=== PATIENT | female | born 1965 | race African-American/Black ===

== ENCOUNTER 2021-05-02 14:32 | Emergency (ER) | payer BC ==
[~2021-05-02] VITALS: Ht 157.5 cm; Wt 100.0 kg
[2021-05-02 19:37] LABS: BILIRUBIN,URINE NEGATIVE (NEG); CLARITY,URINE CLEAR; COLOR,URINE YELLOW; NITRITE,URINE NEGATIVE (NEG); PROTEIN,URINE NEGATIVE (NEG-TRACE)
[2021-05-02 19:43] LABS: AMPHETAMINE/METHAMPHETAMINE NEG (NEG); BARBITURATES NEG (NEG); BENZODIAZEPINES NEG (NEG); CANNABINOIDS NEG (NEG); COCAINE NEG (NEG); METHADONE NEG (NEG); OPIATES NEG (NEG); PHENCYCLIDINE NEG (NEG)
[2021-05-02] MEDS ORDERED: LABETALOL 20 MG/4 ML DISP.SYRIN. IVP ONE (19:45)
[2021-05-02 19:48] LABS: BACTERIA,URINE 0 /HPF (0-FEW); RBC,URINE 0 /HPF (0-2); TRICHOMONAS,URINE PRESENT
--- NOTE | 2021-05-02 20:13 | RAD ---
CT abdomen and pelvis without contrast: Reason for examination: Flank pain Helical images were obtained through the abdomen and pelvis with no intravenous or oral contrast admi nistered. Reconstruction was performed in sagittal and coronal planes. Exposure: One or more of the following individualized dose reduction techniques were utilized for thi s examination: 1. Automated exposure control 2. Adjustment of the mA and/or kV according to patient size 3. Use of iterative reconstruction technique. There is some mild atelectasis at the lung bases. The heart size is normal with no pericardial effusi on. The liver is mildly enlarged at 19 cm and shows some fatty infiltration but no focal lesions. Spleen is normal in size and density. No abnormalities of seen at the adrenal glands, gallbladder or pancrea s. There is a small nodule near the splenic hilum measuring 1.3 cm in size consistent with a small sp lenule lung. The abdominal aorta and inferior vena cava show no acute abnormalities. Colon shows a fe w scattered diverticuli but no evidence of diverticulitis or colitis. No abnormality seen at the appe ndix. The small intestinal tract shows no abnormal dilatation, wall thickening or obstruction. No abn ormality seen at the stomach or duodenum. The kidneys show no renal masses, renal calculi, hydronephr osis or evidence of obstructive uropathy. The bladder is not distended. There does however appear to be a large lobulated mass in the midline o f the pelvis measuring 13.9 x 12.3 x 12.3 cm in craniocaudal, AP and transverse dimensions respective ly. This probably represents a large uterine fibroid. Further evaluation with ultrasound should be co nsidered. No free fluid is present. No free air seen in the abdomen. No acute bony abnormalities are seen. IMPRESSION: Linear atelectasis at the lung bases. Fatty liver with mild enlargement at 19 cm. Small 1.3 cm nodule consistent with a splenule lung near the splenic hilum. Large lobulated mass at the midline of the pelvis which appears to be arising from the uterus and con sistent with a probable fibroid measuring 13.9 x 12.3 x 12.3 cm in greatest dimension. Recommend furt her evaluation with ultrasound. Electronically signed by: Kathie Salazar MD (05/02/2021 8:11 PM) [facility]
[2021-05-02 20:57] LABS: BASO # 0.1 x10^3/uL (0.0-0.2); BASO % 1 % (0-3); EOS # 0.1 x10^3/uL (0.0-0.7); EOS % 2 % (0-3); HEMATOCRIT 41.4 % (36.0-47.0); HEMOGLOBIN 13.9 g/dL (12.0-15.5); LYMPH % 40 % (24-48); MEAN CORPUSCULAR HEMOGLOBIN 28 pg (25-35); MEAN CORPUSCULAR HGB CONC 34 g/dL (31-37); MEAN CORPUSCULAR VOLUME 84 fL (79-100); MONO # 0.4 x10^3/uL (0.0-1.1); MONO % 9 % (0-9); NEUT # 2.4 x10^3/uL (1.8-7.7); NEUT % 48 % (31-73); PLATELET COUNT 268 x10^3/uL (140-400); RED BLOOD COUNT 4.91 x10^6/uL (3.50-5.40); RED CELL DISTRIBUTION WIDTH 14.3 % (11.5-14.5)
[2021-05-02 21:11] LABS: CALCIUM 10.1 mg/dL (8.5-10.1); CREATININE 0.7 mg/dL (0.6-1.0); GFR 105.5; POTASSIUM 4.2 mmol/L (3.5-5.1)
[2021-05-02 21:14] LABS: ALBUMIN 3.5 g/dL (3.4-5.0); ALBUMIN/GLOBULIN RATIO 0.8 (1.0-1.7); TOTAL BILIRUBIN 0.3 mg/dL (0.2-1.0); TOTAL PROTEIN 7.8 g/dL (6.4-8.2)
[2021-05-02] MEDS ORDERED: cefTRIAXone IV Push 1 GM VIAL. IVP ONE (21:30)
[2021-05-02] MEDS ORDERED: metroNIDAZOLE 500 MG TABLET PO ONE (21:30)
[2021-05-02] MEDS ORDERED: DOXYCYCLINE HYCLATE 100 MG TABLET PO ONE (21:30)
--- NOTE | 2021-05-02 21:30 | RAD ---
EXAM: ULTRASOUND PELVIS INDICATION: Reason: pelvic mass? / Spl. Instructions: / History: . COMPARISON: CT dated 05/02/2021 TECHNIQUE: Transabdominal sonography was performed. FINDINGS: Uterus measures 15.4 x 12.4 x 10.1 cm. Use gradually lesions throughout the myometrium, largest of wh ich measures about 6.9 cm. The endometrium is not clearly identified due to multiple masses. Neither ovary is clearly identified. No adnexal mass or free fluid. IMPRESSION: 1. Fibroid uterus. 2. Endometrium is not clearly visualized and likely obscured by uterine fibroids. 3. Neither ovary is clearly identified. No apparent adnexal mass or free fluid. Electronically signed by: Abel So MD (05/02/2021 9:27 PM) [facility]
--- NOTE | 2021-05-02 22:11 | PHYS DOC ---
Past Medical History Past Surgical History: Other Additional Past Surgical Histo: ablation uterus General Adult EDM: Chief Complaint: FLANK PAIN HPI: HPI: Patient is a 56 year old female with no significant medical history presented today complaining of 8 out of 10 bilateral flank pain described as sharp and intermittent, symptoms for the last 2 weeks. Patient states "I believe it is my kidneys". Denies any urgency, frequency or dysuria. Denies any nausea vomiting. Denies any hematuria. Denies any fever. Denies anything specifically exacerbating or relieving the pain Review of Systems: Review of Systems: Constitutional: Denies fever or chills. [] Eyes: Denies change in visual acuity. [] HENT: Denies nasal congestion or sore throat. [] Respiratory: Denies cough or shortness of breath. [] Cardiovascular: Denies chest pain or edema. [] GI: Denies abdominal pain, nausea, vomiting, bloody stools or diarrhea. [] : Reports bilateral flank pain. Denies dysuria. [] Musculoskeletal: Denies back pain or joint pain. [] Integument: Denies rash. [] Neurologic: Denies headache, focal weakness or sensory changes. [] Psychiatric: Denies depression or anxiety. [] Heart Score: C/O Chest Pain: N/A Risk Factors: Risk Factors: DM, Current or recent (<one month) smoker, HTN, HLP, family history of CAD, obesity. Risk Scores: Score 0 - 3: 2.5% MACE over next 6 weeks - Discharge Home Score 4 - 6: 20.3% MACE over next 6 weeks - Admit for Clinical Observation Score 7 - 10: 72.7% MACE over next 6 weeks - Early Invasive Strategies Current Medications: Current Medications Medications (Trade) Dose Ordered Sig/Jsoe Start Time Stop Time Status Last Admin Dose Admin Ceftriaxone Sodium (Rocephin) 1 gm 1X ONCE 05/02/21 21:30 05/02/21 21:31 DC 05/02/21 21:50 1 GM Doxycycline Hyclate (Vibra-Tab) 100 mg 1X ONCE 05/02/21 21:30 05/02/21 21:31 DC 05/02/21 21:49 100 MG Labetalol HCl (Normodyne Iv Push) 10 mg 1X ONCE 05/02/21 19:45 05/02/21 19:46 DC 05/02/21 20:35 10 MG Metronidazole (Flagyl) 2,000 mg 1X ONCE 05/02/21 21:30 05/02/21 21:31 DC 05/02/21 21:49 2,000 MG Allergies: Allergies: Allergies Coded Allergies Type Severity Reaction Last Updated Verified No Known Drug Allergies 05/02/21 No Physical Exam: PE: Constitutional: Well developed, well nourished, no acute distress, non-toxic appearance. [] HENT: Normocephalic, atraumatic, bilateral external ears normal, oropharynx moist, no oral exudates, nose normal. [] Eyes: PERRLA, EOMI, conjunctiva normal, no discharge. [] Neck: Normal range of motion, no tenderness, supple, no stridor. [] Cardiovascular:Heart rate regular rhythm, no murmur [] Lungs & Thorax: Bilateral breath sounds clear to auscultation [] Abdomen: Bowel sounds normal, soft, no tenderness, no masses, no pulsatile masses. [] Skin: Warm, dry, no erythema, no rash. [] Back: No tenderness, no CVA tenderness. [] Extremities: No tenderness, no cyanosis, no clubbing, ROM intact, no edema. [] Neurologic: Alert and oriented X 3, normal motor function, normal sensory function, no focal deficits noted. [] Psychologic: Affect normal, judgement normal, mood normal. [] Current Patient Data: Labs: Laboratory Tests Test 05/02/21 19:16 05/02/21 19:26 05/02/21 20:48 Urine Collection Type Unknown Urine Color Yellow Urine Clarity Clear Urine pH 6.0 (<5.0-8.0) Urine Specific [place] 1.020 (1.000-1.030) Urine Protein Negative mg/dL (NEG-TRACE) Urine Glucose (UA) Negative mg/dL (NEG) Urine Ketones (Stick) Negative mg/dL (NEG) Urine Blood Negative (NEG) Urine Nitrite Negative (NEG) Urine Bilirubin Negative (NEG) Urine Urobilinogen Dipstick 1.0 mg/dL (0.2 mg/dL) Urine Leukocyte Esterase Negative (NEG) Urine RBC 0 /HPF (0-2) Urine WBC 1-4 /HPF (0-4) Urine Squamous Epithelial Cells Mod /LPF Urine Bacteria 0 /HPF (0-FEW) Urine Mucus Slight /LPF Urine Trichomonas Present Urine Opiates Screen Neg (NEG) Urine Methadone Screen Neg (NEG) Urine Barbiturates Neg (NEG) Urine Phencyclidine Screen Neg (NEG) Urine Amphetamine/Methamphetamine Neg (NEG) Urine Benzodiazepines Screen Neg (NEG) Urine Cocaine Screen Neg (NEG) Urine Cannabinoids Screen Neg (NEG) Urine Ethyl Alcohol Neg (NEG) POC Urine HCG, Qualitative Hcg negative (Negative) White Blood Count 5.0 x10^3/uL (4.0-11.0) Red Blood Count 4.91 x10^6/uL (3.50-5.40) Hemoglobin 13.9 g/dL (12.0-15.5) Hematocrit 41.4 % (36.0-47.0) Mean Corpuscular Volume 84 fL (79-100) Mean Corpuscular Hemoglobin 28 pg (25-35) Mean Corpuscular Hemoglobin Concent 34 g/dL (31-37) Red Cell Distribution Width 14.3 % (11.5-14.5) Platelet Count 268 x10^3/uL (140-400) Neutrophils (%) (Auto) 48 % (31-73) Lymphocytes (%) (Auto) 40 % (24-48) Monocytes (%) (Auto) 9 % (0-9) Eosinophils (%) (Auto) 2 % (0-3) Basophils (%) (Auto) 1 % (0-3) Neutrophils # (Auto) 2.4 x10^3/uL (1.8-7.7) Lymphocytes # (Auto) 2.0 x10^3/uL (1.0-4.8) Monocytes # (Auto) 0.4 x10^3/uL (0.0-1.1) Eosinophils # (Auto) 0.1 x10^3/uL (0.0-0.7) Basophils # (Auto) 0.1 x10^3/uL (0.0-0.2) Sodium Level 138 mmol/L (136-145) Potassium Level 4.2 mmol/L (3.5-5.1) Chloride Level 104 mmol/L (98-107) Carbon Dioxide Level 29 mmol/L (21-32) Anion Gap 5 (6-14) L Blood Urea Nitrogen 12 mg/dL (7-20) Creatinine 0.7 mg/dL (0.6-1.0) Estimated GFR (Cockcroft-Gault) 105.5 BUN/Creatinine Ratio 17 (6-20) Glucose Level 90 mg/dL (70-99) Calcium Level 10.1 mg/dL (8.5-10.1) Total Bilirubin 0.3 mg/dL (0.2-1.0) Aspartate Amino Transferase (AST) 17 U/L (15-37) Alanine Aminotransferase (ALT) 39 U/L (14-59) Alkaline Phosphatase 108 U/L (46-116) Total Protein 7.8 g/dL (6.4-8.2) Albumin 3.5 g/dL (3.4-5.0) Albumin/Globulin Ratio 0.8 (1.0-1.7) L Laboratory Tests 05/02/21 20:48 Laboratory Tests 05/02/21 20:48 Vital Signs: Vital Signs Date Time Temp Pulse Resp B/P (MAP) Pulse Ox O2 Delivery O2 Flow Rate FiO2 05/02/21 20:35 67 212/99 05/02/21 19:29 16 100 Room Air 05/02/21 19:25 97.8 97.8 EKG: EKG: [] Radiology/Procedures: Radiology/Procedures: []PROCEDURE: PELVIS ULTRASOUND EXAM: ULTRASOUND PELVIS INDICATION: Reason: pelvic mass? / Spl. Instructions: / History: . COMPARISON: CT dated 05/02/2021 TECHNIQUE: Transabdominal sonography was performed. FINDINGS: Uterus measures 15.4 x 12.4 x 10.1 cm. Use gradually lesions throughout the myometrium, largest of which measures about 6.9 cm. The endometrium is not clearly identified due to multiple masses. Neither ovary is clearly identified. No adnexal mass or free fluid. IMPRESSION: 1. Fibroid uterus. 2. Endometrium is not clearly visualized and likely obscured by uterine fibroids. 3. Neither ovary is clearly identified. No apparent adnexal mass or free fluid. Electronically signed by: Abel So MD (05/02/2021 9:27 PM) [facility] [place] SIGNED BY: ABEL SO MD DATE: 05/02/21 [id number] 0 PROCEDURE: CT ABDOMEN PELVIS WO CONTRAST CT abdomen and pelvis without contrast: Reason for examination: Flank pain Helical images were obtained through the abdomen and pelvis with no intravenous or oral contrast administered. Reconstruction was performed in sagittal and coronal planes. Exposure: One or more of the following individualized dose reduction techniques were utilized for this examination: 1. Automated exposure control 2. Adjustment of the mA and/or kV according to patient size 3. Use of iterative reconstruction technique. There is some mild atelectasis at the lung bases. The heart size is normal with no pericardial effusion. The liver is mildly enlarged at 19 cm and shows some fatty infiltration but no focal lesions. Spleen is normal in size and density. No abnormalities of seen at the adrenal glands, gallbladder or pancreas. There is a small nodule near the splenic hilum measuring 1.3 cm in size consistent with a small splenule lung. The abdominal aorta and inferior vena cava show no acute abnormalities. Colon shows a few scattered diverticuli but no evidence of diverticulitis or colitis. No abnormality seen at the appendix. The small intestinal tract shows no abnormal dilatation, wall thickening or obstruction. No abnormality seen at the stomach or duodenum. The kidneys show no renal masses, renal calculi, hydronephrosis or evidence of obstructive uropathy. The bladder is not distended. There does however appear to be a large lobulated mass in the midline of the pelvis measuring 13.9 x 12.3 x 12.3 cm in craniocaudal, AP and transverse dimensions respectively. This probably represents a large uterine fibroid. Further evaluation with ultrasound should be considered. No free fluid is present. No free air seen in the abdomen. No acute bony abnormalities are seen. IMPRESSION: Linear atelectasis at the lung bases. Fatty liver with mild enlargement at 19 cm. Small 1.3 cm nodule consistent with a splenule lung near the splenic hilum. Large lobulated mass at the midline of the pelvis which appears to be arising f rom the uterus and consistent with a probable fibroid measuring 13.9 x 12.3 x 12.3 cm in greatest dimension. Recommend further evaluation with ultrasound. Electronically signed by: Larry Buckner MD (05/02/2021 8:11 PM) [facility] and SIGNED BY: LARRY BUCKNER MD DATE: 05/02/[id number] 0 Course & Med Decision Making: Course & Med Decision Making Pertinent Labs and Imaging studies reviewed. (See chart for details) This is a 56-year-old female patient presented to the ED today complaining of flank pain bilaterally for 2 weeks. CBC, CMP with no acute findings UA negative for UTI, noted for trichomonas. Patient was treated in the ED as well as sent home on doxycycline. CT of the abdomen and pelvic was noted for fatty liver, splenule lung near the splenic hilum, large pelvic mass suspicious for fibroid the radiologist recommended pelvic ultrasound. Pelvic ultrasound was noted for fibroid uterus. Patient's blood pressure in the ED was 227/213 with a heart rate of 67 on arrival to the ED. She was given labetalol. Blood pressure has come down. Patient denies any previous history of hypertension though looking at these numbers this patient likely has high blood pressure. Emphasized the importance of following up with the PCP. Also instructed to follow-up with an [employer]. Es Disclaimer: Es Disclaimer: This electronic medical record was generated, in whole or in part, using a voice recognition dictation system. Departure Departure Impression: Primary Impression: Trichomonas infection Additional Impressions: Accelerated hypertension Fibroids Disposition: HOME / SELF CARE / HOMELESS Condition: STABLE Referrals: NO PCP (PCP) follow up with your primary care doctor for high blood pressure ABEL PAUL MD follow up in one week Patient Instructions: Hypertension, Trichomoniasis, Urinary Tract Infection Additional Instructions: You were evaluated in the emergency room, you tested positive for trichomonas, this is a sexually transmitted disease. We will send prescription antibiotics to your pharmacy to complete treatment. Ensure you complete them. Use protection at all times. Contact all your sex partners, let them know you were treated for STDs and ask them to seek treatment too. Your blood pressure is also running high. Please establish care with a primary care doctor and start following up. Consider losing weight, try to exercise. Avoid salty foods. You also have fibroids. Follow-up with an POLYMERIZATION HELPER for the Scripts Doxycycline Hyclate (DOXYCYCLINE HYCLATE) 100 Mg Tablet 1 TAB PO BID, #14 TAB Prov: CORY DELAROSA APRN 05/02/21 CORY DELAROSA APRN May 02, 2021 22:11
[2021-05-02] MEDS ORDERED: DOXY100T PO (22:44)
[2021-05-02 22:48] VITALS: BP 174/84
== END 2021-05-02 23:15 | disposition home or self-care (01) ==
LOC: ER 14:32
DX: A59.9 Trichomoniasis, unspecified (principal); I10 Essential (primary) hypertension; D21.9 Benign neoplasm of connective and other soft tissue, unspecified
CPT/HCPCS: 36415; 74176; 76856; 80053; 80307; 81001; 81025; 85025; 96374; 96375; 99285; J0696; J3490